=== PATIENT | male | born 1980 | race American Indian/Alaskan Native ===

== ENCOUNTER 2022-05-18 17:51 | Emergency (ER) | payer BC, MEDICAID, OTHER ==
[2022-05-18 18:35] LABS: CHLORIDE,CL 97 mEq/L (98-106); SODIUM,NA 136 mEq/L (136-145)
[2022-05-18 18:37] LABS: ESTIMATED GFR 112 mL/min (>=60)
[2022-05-18 18:38] LABS: AMPHETAMINES,URINE NEGATIVE (NEGATIVE); BARBITURATES,URINE NEGATIVE (NEGATIVE); BENZODIAZEPINE,URINE NEGATIVE (NEGATIVE); MDMA (ECSTASY), URINE NEGATIVE (NEGATIVE); METHADONE,URINE NEGATIVE (NEGATIVE); METHAMPHETAMINES,URINE NEGATIVE (NEGATIVE); OPIATES,URINE NEGATIVE (NEGATIVE); OXYCODONE,URINE NEGATIVE (NEGATIVE); PHENCYCLIDINE,URINE NEGATIVE (NEGATIVE); TCA,URINE NEGATIVE (NEGATIVE)
[2022-05-18 18:51] VITALS: BP 138/86; PULSE 108
[2022-05-18] MEDS ORDERED: Insulin Regular, Human 100 Units/ML 3 ML Vial SUBCUT ONE (19:05)
== END 2022-05-18 20:50 | disposition home or self-care (01) ==
LOC: CC.ED 17:51
DX: R74.01 Elevation of levels of liver transaminase levels (principal); F10.129 Alcohol abuse with intoxication, unspecified; I10 Essential (primary) hypertension; I25.2 Old myocardial infarction; E11.9 Type 2 diabetes mellitus without complications; Z91.018 Allergy to other foods; Z79.84 Long term (current) use of oral hypoglycemic drugs; Z79.899 Other long term (current) drug therapy; Z79.82 Long term (current) use of aspirin
CPT/HCPCS: 36415; 80053; 80305-QW; 80307; 83735; 85025; 99284